=== PATIENT | female | born 1970 | race Caucasian/White ===

== ENCOUNTER 2018-08-14 12:30 | Emergency (ER) | payer OTHER ==
[~2018-08-14] VITALS: Ht 172.7 cm; Wt 61.2 kg
[2018-08-14 12:34] VITALS: Ht 172.7 cm; Wt 61.2 kg
[2018-08-14 13:06] VITALS: BP 129/70
== END 2018-08-14 13:06 | disposition home or self-care (01) ==
LOC: ED 12:30
DX: F10.20 Alcohol dependence, uncomplicated (principal); F41.9 Anxiety disorder, unspecified

== ENCOUNTER 2018-08-14 15:34 | Emergency (ER) | payer OTHER ==
[~2018-08-14] VITALS: Ht 172.7 cm; Wt 61.2 kg
[2018-08-14 15:35] VITALS: BP 128/100; Ht 172.7 cm; Wt 61.2 kg
== END 2018-08-14 17:35 | disposition left against medical advice (07) ==
LOC: ED 15:34
DX: Z53.21 Procedure and treatment not carried out due to patient leaving prior to being seen by health care provider (principal)